=== PATIENT | female | born 2000 | race Asian ===

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

== ENCOUNTER → 2020-01-21 13:44 | Outpatient (CLI) | payer BC, SELFPAY ==
[2019-12-24 11:11] VITALS: BMI 24.8
--- NOTE | 2020-01-21 13:44 | US_ITS ---
STUDY: ULTRASOUND OF THE FEMALE PELVIS - COMPLETE REASON FOR EXAM: Female, 19 years old. IUD placement. LMP: Unknown. TECHNIQUE: Transabdominal and Transvaginal TECHNICAL QUALITY: Adequate. COMPARISON: None. FINDINGS: The uterus is retroverted and is tilted to the right side of the pelvis. The uterus measures 7.9 x 5.6 x 4.9 cm. Normal uterine cervix. The endometrium measures 10.1 mm in thickness, and is hyperechoic. There is no demonstrated endometrial mass. There is no demonstrated myometrial mass. IUD is seen in the lower uterus/ cervix. The right ovary is visualized. The right ovary measures 3.6 x 2.4 x 2.4 cm. There are multiple follicles of the right ovary without a dominant cyst. There is no visualized right adnexal mass or complex lesion. There is normal arterial and normal venous vascularity. The left ovary is visualized. The left ovary measures 2.9 x 1.9 x 1.4 cm. There are multiple follicles of the left ovary without a dominant cyst. There is no visualized left adnexal mass or complex lesion. There is normal arterial and normal venous vascularity. There is minimal fluid in the cul-de-sac. The pre void volume of the bladder was 518 ml. The urinary bladder is grossly normal. Polycystic ovary disease: No. US/Pelvic (Non ) IMPRESSION: 1. IUD in the lower uterine segment extending into the cervix. 2. Normal ovaries. 3. Minimal free fluid. To be physiologic. Electronically Signed: Dontrell Urena DO at 17:05 EDT Tel [phone], Service support ,
--- NOTE | 2020-01-21 13:44 | US_ITS ---
STUDY: ULTRASOUND OF THE FEMALE PELVIS - COMPLETE REASON FOR EXAM: Female, 19 years old. IUD placement. LMP: Unknown. TECHNIQUE: Transabdominal and Transvaginal TECHNICAL QUALITY: Adequate. COMPARISON: None. FINDINGS: The uterus is retroverted and is tilted to the right side of the pelvis. The uterus measures 7.9 x 5.6 x 4.9 cm. Normal uterine cervix. The endometrium measures 10.1 mm in thickness, and is hyperechoic. There is no demonstrated endometrial mass. There is no demonstrated myometrial mass. IUD is seen in the lower uterus/ cervix. The right ovary is visualized. The right ovary measures 3.6 x 2.4 x 2.4 cm. There are multiple follicles of the right ovary without a dominant cyst. There is no visualized right adnexal mass or complex lesion. There is normal arterial and normal venous vascularity. The left ovary is visualized. The left ovary measures 2.9 x 1.9 x 1.4 cm. There are multiple follicles of the left ovary without a dominant cyst. There is no visualized left adnexal mass or complex lesion. There is normal arterial and normal venous vascularity. There is minimal fluid in the cul-de-sac. The pre void volume of the bladder was 518 ml. The urinary bladder is grossly normal. Polycystic ovary disease: No. US/Transvaginal Non- IMPRESSION: 1. IUD in the lower uterine segment extending into the cervix. 2. Normal ovaries. 3. Minimal free fluid. To be physiologic. Electronically Signed: Dontrell Urena DO at 17:05 EDT Tel [phone], Service support ,
== END ==
PROVIDERS: PCP Pediatrics; Referring Provider Nurse Practitioner Women's Health; Visit Provider Nurse Practitioner Women's Health
DX: R10.2 Pelvic and perineal pain (principal)
CPT/HCPCS: 76830; 76856

== ENCOUNTER → 2020-01-26 | Outpatient (CLI) | payer BC, SELFPAY ==
[2020-01-26 13:55] VITALS: BMI 28.9
[2020-01-29 11:53] LABS: Gonococcus By Nucleic Acid AMP Negative (Negative)
[2020-01-29 11:56] LABS: Chlamydia By Nucleic Acid AMP Positive (Negative)
== END | disposition home or self-care (01) ==
LOC: LABSPEC 16:36
PROVIDERS: PCP Pediatrics; Visit Provider Nurse Practitioner Women's Health
DX: Z11.3 Encounter for screening for infections with a predominantly sexual mode of transmission (principal)
CPT/HCPCS: 87491; 87591